=== PATIENT | female | born 2000 ===

== ENCOUNTER 2018-03-11 19:08 | Emergency (ER) | payer OTHER ==
--- NOTE | 2018-03-11 21:29 | EDM.PDOC ---
ED HPI GENERAL MEDICAL PROBLEM - General Chief Complaint: ENT Problem Stated Complaint: [id number] CHOKED ON LETTUCE-STUCK IN NOSE Time Seen by Provider: 03/11/18 20:00 Source of Information: Reports: Patient History Limitations: Reports: No Limitations - History of Present Illness INITIAL COMMENTS - FREE TEXT/NARRATIVE: Reports chocking on piece of lettuce with supper and feels like, piece still stuck in throat or nose. No difficulty breathing. Has been drinking water sithout problem since event Throat Pain Score (Numeric/FACES): 2 - Related Data Allergies Allergy/AdvReac Type Severity Reaction Status Date / Time No Known Allergies Allergy Verified 03/11/18 19:55 Home Meds: Home Meds Cetirizine [ZyrTEC] 10 mg PO DAILY 03/11/18 [History] Pantoprazole [ProTONIX] 40 mg PO DAILY 03/11/18 [History] Past Medical History - Past Health History Medical/Surgical History: Denies Medical/Surgical History Social & Family History - Family History Family Medical History: Noncontributory - Tobacco Use Smoking Status *Q: Never Smoker Second Hand Smoke Exposure: No - Caffeine Use Caffeine Use: Reports: Coffee - Recreational Drug Use Recreational Drug Use: No ED ROS ENT - Review of Systems Review Of Systems: ROS reveals no pertinent complaints other than HPI. ED EXAM, ENT - Physical Exam Exam: See Below Exam Limited By: No Limitations General Appearance: Alert, No Apparent Distress, Anxious Eye Exam: Bilateral Eye: EOMI Ears: Normal External Exam, Normal TMs Nose: Normal Inspection, Normal Mucousa, No Blood. No: Nasal Discharge, Nasal Swelling, Nasal Tenderness, Foreign Body Mouth/Throat: Normal Inspection, Normal Gums. No: Hoarse Voice, Pharyngeal Erythema Head: Atraumatic, Normocephalic Neck: Normal Inspection Respiratory/Chest: No Respiratory Distress, Lungs Clear, Normal Breath Sounds Cardiovascular: Normal Peripheral Pulses, Regular Rate, Rhythm GI/Abdominal: Normal Bowel Sounds, Soft, Non-Tender Extremities: Normal Inspection Neurological: Alert, Oriented, Normal Cognition Psychiatric: Anxious Skin: Warm, Dry, Intact, Normal Color Course - Vital Signs Last Recorded V/S: Last Vital Signs Temp 98.2 F 03/11/18 19:52 Pulse 63 03/11/18 19:52 Resp 16 03/11/18 19:52 BP 113/79 03/11/18 19:52 Pulse Ox 100 03/11/18 19:52 Departure - Departure Time of Disposition: 21:27 Disposition: Home, Self-Care 01 Condition: Good Clinical Impression: Foreign body sensation in throat - Discharge Information Instructions: Nasal Foreign Body, [id number] Referrals: PCP,None [Primary Care Provider] - Forms: ED Department Discharge Additional Instructions: Follow up in clinic if develop nasal drainage or fevers soft light diet tomorrow
== END 2018-03-11 21:32 | disposition home or self-care (01) ==
LOC: DL.ED 19:08
DX: R09.89 Other specified symptoms and signs involving the circulatory and respiratory systems (principal); Z88.8 Allergy status to other drugs, medicaments and biological substances
CPT/HCPCS: 99282